=== PATIENT | female | born 1940 | race Caucasian/White ===

== ENCOUNTER 2018-01-11 20:50 | Inpatient (IN) | payer MEDICARE ==
[~2018-01-11] VITALS: Ht 152.4 cm; Wt 72.7 kg
[~2018-01-11 20:50] MED LIST: AMLO2.5T2 PO; ASPI-611 PO; ERGO500014 PO; LOSA100T15 PO; MULT-1179 PO; ROSU10TA PO; TICA90TA2 PO
[2018-01-11 21:39] LABS: BASOPHILS % (AUTO) 0.3 % (0-1); EOSINOPHILS # (AUTO) 0.3 X10'3 (0-0.9); EOSINOPHILS % (AUTO) 2.8 % (0-6); HEMATOCRIT 39.3 % (35.0-45.0); HEMOGLOBIN 12.8 g/dl (12.0-16.0); LYMPHOCYTES # (AUTO) 2.5 X10'3 (1.1-4.8); LYMPHOCYTES % (AUTO) 23.7 % (21-51); MEAN CORPUSCULAR HEMOGLOBIN 26.5 PG (27.0-31.0); MEAN CORPUSCULAR HGB CONC 32.6 % (33.0-36.5); MEAN CORPUSCULAR VOLUME 81.4 FL (78-98); MEAN PLATELET VOLUME 8.4 FL (7.4-10.4); MONOCYTES # (AUTO) 0.7 X10'3 (0-0.9); MONOCYTES % (AUTO) 6.5 % (2-12); NEUTROPHILS % (AUTO) 66.7 % (42-75); PLATELET COUNT 273 X10'3 (140-440); RED BLOOD COUNT 4.82 X10'6 (4.20-5.60); RED CELL DISTRIBUTION WIDTH 14.8 % (11.5-14.5); WHITE BLOOD COUNT 10.5 X10'3 (4.5-11.0)
[2018-01-11 21:55] LABS: ALANINE AMINOTRANSFERASE 30 U/L (12-78); ALBUMIN 3.8 G/DL (3.4-5.0); ALBUMIN/GLOBULIN RATIO 1.1 (1.1-1.5); ALKALINE PHOSPHATASE 60 IU/L (46-116); ANION GAP 8 (8-16); ASPARTATE AMINO TRANSFERASE 17 U/L (10-37); BILIRUBIN,TOTAL 0.2 MG/DL (0.1-1.0); BLOOD UREA NITROGEN 25 MG/DL (7-18); BUN/CREATININE RATIO 24.3 (6.6-38.0); CHLORIDE 100 MMOL/L (99-107); CREATININE 1.03 MG/DL (0.40-0.90); GLUCOSE 91 MG/DL (70-104); POTASSIUM 3.9 MMOL/L (3.5-5.1); SODIUM 135 MMOL/L (135-145); TOTAL CARBON DIOXIDE 26.9 MMOL/L (24-32); TOTAL PROTEIN 7.3 G/DL (6.4-8.2); eGFR 52 ML/MIN
[2018-01-11 21:56] LABS: PARTIAL THROMBOPLASTIN TIME 30 SECONDS (22-32)
[2018-01-11] MEDS ORDERED: aspirin 81mg tab.chew PO ONE (22:10)
[2018-01-11] MEDS ORDERED: AMLO10TA13 PO (22:49)
[2018-01-11] MEDS ORDERED: HCTZ25T PO (22:49)
[2018-01-11] MEDS ORDERED: normal saline 1000ml 1,000 ML IV SCH (23:53)
[2018-01-11] MEDS ORDERED: HYDROcodone/acetaminophen 10/325mg tab PO PRN (23:55)
[2018-01-11] MEDS ORDERED: metoclopramide 5 mg/ml inj IV PRN (23:55)
[2018-01-11] MEDS ORDERED: ondansetron/PF 4mg/2ml inj IV PRN (23:55)
[2018-01-11] MEDS ORDERED: acetaminophen 325mg tablet PO PRN (23:55)
[2018-01-11] MEDS ORDERED: morphine 2 MG/ML inj. syringe IV PRN (23:55)
[2018-01-11] MEDS ORDERED: mag hydrox/Alum hydrox/simeth 30ml oral suspension PO PRN (23:55)
[2018-01-11] MEDS ORDERED: diphenhydrAMINE 25mg capsule PO PRN (23:55)
[2018-01-11] MEDS ORDERED: diphenhydrAMINE 50 mg/ml inj IV PRN (23:55)
[2018-01-11] MEDS ORDERED: magnesium hydroxide 30ml (MOM) UD suspension PO PRN (23:55)
[2018-01-11] MEDS ORDERED: bisacodyl 10mg suppository rectal RC PRN (23:55)
[2018-01-11] MEDS ORDERED: HYDROmorphone 1 mg/ml syringe IV PRN (23:55)
[2018-01-11] MEDS ORDERED: acetaminophen 650mg rectal suppository RC PRN (23:55)
[2018-01-12] VITALS (13 sets, daily range): BP systolic 134–163; BP diastolic 45–61
[2018-01-12 01:13] LABS: HEMOGLOBIN A1C 6.1 % (4.5-6.2)
[2018-01-12 01:14] LABS: MAGNESIUM 2.2 MG/DL (1.5-2.4); PHOSPHORUS 3.5 MG/DL (2.3-4.5)
[2018-01-12] MEDS ORDERED: aminophylline 250mg/10ml inj. IV PRN (03:35)
[2018-01-12] MEDS ORDERED: metoprolol tartrate 1mg/ml inj IV PRN (03:35)
[2018-01-12] MEDS ORDERED: nitroGLYCERIN 0.4mg SUBLingual tab SL PRN (03:35)
[2018-01-12] MEDS ORDERED: regadenoson 0.4mg/5ml syringe IV ONE ×2 (03:35→12:33)
[2018-01-12 04:20] LABS: BASOPHILS % (AUTO) 0.4 % (0-1); EOSINOPHILS # (AUTO) 0.2 X10'3 (0-0.9); HEMATOCRIT 38.4 % (35.0-45.0); HEMOGLOBIN 12.5 g/dl (12.0-16.0); LYMPHOCYTES # (AUTO) 2.1 X10'3 (1.1-4.8); LYMPHOCYTES % (AUTO) 26.9 % (21-51); MEAN CORPUSCULAR HEMOGLOBIN 26.6 PG (27.0-31.0); MEAN CORPUSCULAR HGB CONC 32.5 % (33.0-36.5); MEAN PLATELET VOLUME 8.9 FL (7.4-10.4); MONOCYTES # (AUTO) 0.5 X10'3 (0-0.9); MONOCYTES % (AUTO) 6.9 % (2-12); NEUTROPHILS # (AUTO) 4.9 X10'3 (1.8-7.7); NEUTROPHILS % (AUTO) 62.8 % (42-75); PLATELET COUNT 238 X10'3 (140-440); RED BLOOD COUNT 4.68 X10'6 (4.20-5.60); RED CELL DISTRIBUTION WIDTH 14.6 % (11.5-14.5); WHITE BLOOD COUNT 7.8 X10'3 (4.5-11.0)
[2018-01-12 04:35] LABS: ALANINE AMINOTRANSFERASE 26 U/L (12-78); ALBUMIN 3.6 G/DL (3.4-5.0); ALBUMIN/GLOBULIN RATIO 1.1 (1.1-1.5); ALKALINE PHOSPHATASE 55 IU/L (46-116); ANION GAP 9 (8-16); ASPARTATE AMINO TRANSFERASE 17 U/L (10-37); BILIRUBIN,TOTAL 0.2 MG/DL (0.1-1.0); BLOOD UREA NITROGEN 19 MG/DL (7-18); CALCIUM 8.8 MG/DL (8.5-10.1); CHLORIDE 103 MMOL/L (99-107); CREATININE 0.95 MG/DL (0.40-0.90); GLUCOSE 91 MG/DL (70-104); POTASSIUM 3.5 MMOL/L (3.5-5.1); SODIUM 139 MMOL/L (135-145); TOTAL CARBON DIOXIDE 27.1 MMOL/L (24-32); TOTAL PROTEIN 6.9 G/DL (6.4-8.2); eGFR 57 ML/MIN
[2018-01-12 04:38] LABS: CHOL/HDL RATIO 2.1 (0.00-4.99); CHOLESTEROL 102 MG/DL (0-200); HDL CHOLESTEROL 48 MG/DL (35-60); LDL CHOLESTEROL 44 MG/DL (50-100); TRIGLYCERIDES 45 MG/DL (20-135)
[2018-01-12] MEDS ORDERED: enoxaparin 30mg/0.3ml syringe SQ SCH (08:00)
[2018-01-12] MEDS ORDERED: ROSUVASTATIN CALCIUM 10 MG PO SCH (08:00)
[2018-01-12] MEDS ORDERED: losartan 50mg tablet PO SCH (08:00)
[2018-01-12] MEDS ORDERED: aspirin 81mg tab.chew PO SCH (08:00)
[2018-01-12] MEDS: amLODIPine 5mg tablet PO SCH ×2 (08:00→16:21)
[2018-01-12] MEDS ORDERED: docusate sod 100mg capsule PO SCH (08:00)
[2018-01-12] MEDS ORDERED: aminophylline inj. 10 ML IV ONE (12:33)
[2018-01-12] MEDS ORDERED: famotidine 20mg tablet PO SCH (21:00)
== END 2018-01-12 16:35 | disposition home or self-care (01) | DRG 682 ==
LOC: ER 20:51 → ED HOLD 23:53 → PCU 3S 01-12 01:25
PROVIDERS: ADMIT Family Medicine; ATTEND Hospitalist
PROC: 4A02XM4 Measurement of Cardiac Total Activity, External Approach (ICD-10-PCS; principal; 2018-01-12)
PROC: 3E033HZ Introduction of Radioactive Substance into Peripheral Vein, Percutaneous Approach (ICD-10-PCS; 2018-01-12)
DX: N17.9 Acute kidney failure, unspecified (principal); I50.33 Acute on chronic diastolic (congestive) heart failure; M87.9 Osteonecrosis, unspecified; F32.9 Major depressive disorder, single episode, unspecified; F41.9 Anxiety disorder, unspecified; R07.89 Other chest pain; I25.10 Atherosclerotic heart disease of native coronary artery without angina pectoris; M25.511 Pain in right shoulder; I11.0 Hypertensive heart disease with heart failure; E11.9 Type 2 diabetes mellitus without complications; E78.00 Pure hypercholesterolemia, unspecified; G89.29 Other chronic pain; I25.2 Old myocardial infarction; Z98.61 Coronary angioplasty status; Z28.21 Immunization not carried out because of patient refusal; Z88.0 Allergy status to penicillin; Z88.8 Allergy status to other drugs, medicaments and biological substances; Z91.018 Allergy to other foods; Z79.899 Other long term (current) drug therapy; Z79.82 Long term (current) use of aspirin; Z82.49 Family history of ischemic heart disease and other diseases of the circulatory system; Z80.9 Family history of malignant neoplasm, unspecified; Z83.3 Family history of diabetes mellitus
CPT/HCPCS: 36415; 71045; 73200; 78452; 80053; 80061; 83036; 83735; 83880; 84100; 84443; 84484; 85025; 85610; 85730; 87070; 93005; 93017; 99285; A9500; G0378; J0280; J1650; J2405

== ENCOUNTER 2021-11-30 11:25 | Day surgery (SDC) | payer MEDICARE, OTHER ==
[2021-11-30] VITALS (11 sets, daily range): BP systolic 109–177; BP diastolic 41–80
[~2021-11-30] VITALS: Ht 152.4 cm; Wt 71.8 kg
[~2021-11-30 11:25] MED LIST changes: +AMLO10TA13 PO; -AMLO2.5T2 PO; +HYDR25TA5 PO; -LOSA100T15 PO; +LOSA100T57 PO; -ROSU10TA PO; +ROSU10TA2 PO; -TICA90TA2 PO
[2021-11-30] MEDS ORDERED: normal saline 1,000 ML IV SCH (11:55)
[2021-11-30] MEDS ORDERED: LORazepam 0.5 MG tablet PO PRN (11:55)
[2021-11-30] MEDS ORDERED: diphenhydrAMINE 25mg capsule PO PRN (11:55)
[2021-11-30] MEDS ORDERED: [UNRECOGNIZED DRUG - OTHER] PO (12:21)
[2021-11-30] MEDS ORDERED: CHOL20004 PO (12:21)
[2021-11-30] MEDS ORDERED: VALS320T17 PO (12:21)
[2021-11-30] MEDS ORDERED: [UNRECOGNIZED DRUG - OTHER] (12:21)
[2021-11-30] MEDS ORDERED: verapamil 2.5 mg/ml inj IV ONE (13:09)
[2021-11-30] MEDS ORDERED: fentaNYL/PF 50MCG/1 ML 2ML syringe ONE (13:10)
[2021-11-30] MEDS ORDERED: nitroGLYCERIN-Tridil 50MG/D5W 250 ML IV ONE (13:10)
[2021-11-30] MEDS ORDERED: iohexol 350MG/ML 100ml bottle IV ONE (13:10)
[2021-11-30] MEDS ORDERED: heparin 1,000unit/ml 10ml vial 10 ML ONE (13:10)
[2021-11-30] MEDS ORDERED: LIDOcaine 1% (10mg/ml) 2ml vial ONE (13:10)
[2021-11-30] MEDS ORDERED: midazolam 1 mg/ML 2ml injection ONE (13:10)
[2021-11-30] MEDS ORDERED: LIDOcaine 1% 30ml preserv. free vial ONE (14:03)
[2021-11-30] MEDS ORDERED: HYDROcodone/acetaminophen 5mg/325mg tablet PO PRN (15:30)
[2021-11-30] MEDS ORDERED: HYDROcodone/acetaminophen 10/325mg tab PO PRN (15:30)
== END 2021-11-30 20:20 | disposition home or self-care (01) ==
LOC: SSTAY O 11:25
PROVIDERS: ATTEND Student in an Organized Health Care Education/Training Program
DX: I25.10 Atherosclerotic heart disease of native coronary artery without angina pectoris (principal); G47.33 Obstructive sleep apnea (adult) (pediatric); E11.9 Type 2 diabetes mellitus without complications; I10 Essential (primary) hypertension; I49.5 Sick sinus syndrome; Z95.0 Presence of cardiac pacemaker; Z79.899 Other long term (current) drug therapy; E03.9 Hypothyroidism, unspecified; Z79.82 Long term (current) use of aspirin; Z88.0 Allergy status to penicillin; Z88.8 Allergy status to other drugs, medicaments and biological substances
CPT/HCPCS: 93005; 93458; 99152; C1760; C1769; C1894; J1644; J2250; J3010; J3490; J7030; Q0163; Q9967; 99153; A4620; A5120; A6258; A6449